=== PATIENT | female | born 1980 | race Caucasian/White ===

== ENCOUNTER 2023-07-18 04:46 | Day surgery (SDC) | payer OTHER ==
[2023-07-08 10:53] VITALS: BMI 33.6
[2023-07-18] MEDS ORDERED: LIDOCAINE 1%/EPI 1:100000 (20 ML MULTI DOSE VIAL) ONE (09:11)
[2023-07-18] MEDS ORDERED: PROPOFOL 20 ML ONE (09:23)
[2023-07-18] MEDS ORDERED: FENTANYL CITRATE/PF 50 MCG/ML VIAL ONE (09:23)
[2023-07-18] MEDS ORDERED: MIDAZOLAM HCL 2 MG/2 ML SINGLE DOSE VIAL ONE (09:23)
[2023-07-18] MEDS ORDERED: DEXAMETHASONE SOD PHOSPHATE 4 MG/1 ML VIAL ONE (09:24)
[2023-07-18] MEDS ORDERED: KETOROLAC TROMETHAMINE 30 MG/1 ML VIAL ONE (09:24)
[2023-07-18] MEDS ORDERED: SEVOFLURANE 250 ML BTL ONE (09:24)
[2023-07-18] MEDS ORDERED: ONDANSETRON 4 MG/2 ML VIAL ONE (09:24)
[2023-07-18] MEDS ORDERED: LIDOCAINE HCL/PF 2% SDV 5ML VIAL ONE (09:24)
[2023-07-18] MEDS ORDERED: ceFAZolin SODIUM 1 GM VIAL ONE (09:49)
[2023-07-18] MEDS: ceFAZolin 2 GRAM PREMIX BAG IVPB ONE (09:50)
[2023-07-18] MEDS ORDERED: oxyCODONE HCL 5 MG TABLET PO PRN ×2 (10:32)
[2023-07-18] MEDS ORDERED: ONDANSETRON 4 MG/2 ML VIAL IVPUSH PRN (10:32)
[2023-07-18] MEDS ORDERED: LACTATED RINGERS SOLUTION 1,000 ML IV SCH (10:45)
[2023-07-18] MEDS: ACETAMINOPHEN INJECTION 100 ML IVPB ONE (11:10)
[2023-07-18] MEDS: ACETAMINOPHEN 1000 MG/100 ML BAG IVPB PRN (11:10)
[2023-07-18 11:21] VITALS: RESP 16
[2023-07-18 12:37] VITALS: BP 120/70; PULSE 68; TEMP 97.8
== END 2023-07-18 12:50 | disposition home or self-care (01) ==
LOC: JASU-SURG 04:46
PROVIDERS: ATTEND Obstetrics & Gynecology
PROC: 0UBL0ZZ Excision of Vestibular Gland, Open Approach (ICD-10-PCS; principal; 2023-07-18 09:00)
DX: N75.0 Cyst of Bartholin's gland (principal)
CPT/HCPCS: 81025; 86850; 86900; 86901; 87070; 87205; 88304-TC; 94760; J0131

== ENCOUNTER 2023-11-30 04:28 | Day surgery (SDC) | payer OTHER ==
[2023-11-25 11:49] VITALS: BMI 29.2
[2023-11-30] MEDS ORDERED: oxyCODONE HCL 5 MG TABLET PO PRN (08:57)
[2023-11-30] MEDS ORDERED: ONDANSETRON 4 MG/2 ML VIAL IVPUSH PRN (08:57)
[2023-11-30] MEDS ORDERED: ACETAMINOPHEN 325 MG TABLET (FP) PO PRN (09:16)
[2023-11-30] MEDS ORDERED: IBUPROFEN 400 MG TABLET (FP) PO PRN (09:16)
[2023-11-30] MEDS ORDERED: LIDOCAINE 1%/EPI 1:100000 (20 ML MULTI DOSE VIAL) ONE (09:19)
[2023-11-30] MEDS ORDERED: LIDOCAINE HCL/PF 2% SDV 5ML VIAL ONE (09:26)
[2023-11-30] MEDS ORDERED: MIDAZOLAM HCL 2 MG/2 ML SINGLE DOSE VIAL ONE (09:27)
[2023-11-30] MEDS ORDERED: PROPOFOL 20 ML ONE (09:27)
[2023-11-30] MEDS: ceFAZolin SODIUM 1 GM VIAL IVPB ONE (09:46)
[2023-11-30] MEDS: LIDOCAINE 1%/EPI 1:100000 (20 ML MULTI DOSE VIAL) IJ ONE ×2 (09:52)
[2023-11-30] MEDS ORDERED: TRANEXAMIC ACID 1000 MG/10 ML VIAL ONE (10:10)
[2023-11-30] MEDS ORDERED: BACITRACIN ZINC 15 GM TUBE TOPICAL OINTMENT ONE (10:23)
[2023-11-30] MEDS: BACITRACIN ZINC 15 GM TUBE TOPICAL OINTMENT TP ONE (10:27)
[2023-11-30] MEDS ORDERED: DEXAMETHASONE SOD PHOSPHATE 4 MG/1 ML VIAL ONE (10:28)
[2023-11-30] MEDS ORDERED: ONDANSETRON 4 MG/2 ML VIAL ONE (10:28)
[2023-11-30 12:22] VITALS: RESP 16
[2023-11-30 13:07] VITALS: BP 126/70; PULSE 90; TEMP 97.3
== END 2023-11-30 13:37 | disposition home or self-care (01) ==
LOC: JASU-SURG 04:28
PROVIDERS: ATTEND Obstetrics & Gynecology
PROC: 0UBL0ZZ Excision of Vestibular Gland, Open Approach (ICD-10-PCS; principal; 2023-11-30 09:00)
DX: D17.72 Benign lipomatous neoplasm of other genitourinary organ (principal)
CPT/HCPCS: 81025; 86850; 86900; 86901; 88304-TC; 94760